=== PATIENT | female | born 1955 | race American Indian/Alaskan Native ===

== ENCOUNTER 2017-02-22 09:46 | Day surgery (SDC) | payer MEDICARE ==
[2017-02-22] MEDS ORDERED: NACL 0.9% 1000 ML 1,000 ML IV SCH (11:00)
--- NOTE | 2017-02-22 12:33 | Anesthesia Consultation ---
Anesthesia Consult and Med Hx Date of service: 02/22/17 - Airway Anesthetic Teeth Evaluation: Dentures ROM Head & Neck: Adequate Mental/Hyoid Distance: Adequate Mallampati Class: Class II Intubation Access Assessment: Probably Good - Pulmonary Exam CTA: Yes - Cardiac Exam Cardiac Exam: RRR - Pre-Operative Health Status ASA Pre-Surgery Classification: ASA2 Proposed Anesthetic Plan: MAC - Cardiovascular System Hx Hypertension: Yes - Central Nervous System Hx Back Pain: Yes (arthritis in back and knees) Hx Psychiatric Problems: Yes (Anxiety) - Gastrointestinal Hx Gastroesophageal Reflux Disease: Yes
--- NOTE | 2017-02-22 12:33 | Anesthesia Day of Surgery ---
Anesthesia Day of Surgery - Day of Surgery Patient Examined: Yes Patient H&P Reviewed: Yes Patient is NPO: Yes
[2017-02-22] MEDS ORDERED: DIPRIVAN 10 MG/ML IV ONE (14:18)
[2017-02-22] MEDS ORDERED: WATER FOR IRRIG STERILE IR ONE (14:22)
--- NOTE | 2017-02-22 14:41 | Post Anesthesia Evaluation ---
- Post Anesthesia Evaluation Patient Participated: Yes Airway Patent: Yes Stable Respiratory Function: Yes Nausea/Vomiting: No Temp > 96.8F: Yes Pain Manageable: Yes Adequeate Hydration: Yes Anesthesia Complications: No Block Receding Appropriately: Not Applicable Patient on Ventilator: No
--- NOTE | 2017-02-22 14:47 | Operative Report ---
Operative Report Operative Report: Date of procedure: 02/22/2017 Procedure: Esophagogastroduodenoscopy with multiple mucosal biopsies Attending physician: Luis Mondragon MD Casing Puller: Luis Mondragon MD Indication: Patient is a 62-year-old female who presents history of epigastric pain had been and indigestion associated nausea vomiting and reported episodes of hematemesis. An upper endoscopy is done to evaluate patient so that treatment may be directed based on the findings. Consent: Informed consent was obtained after advising the patient and family regarding nature of this procedure, its indications, potential benefits as well as possible complications including but not limited to bleeding perforation and adverse reaction to medication, infection as well as other cardiopulmonary complications. An informed written and verbal consent was then obtained after due opportunity was provided for questions and answers. Monitoring: Patient was monitored continuously with pulse oximetry and electrocardiographic recordings as well as blood pressure recordings. Vital signs remained stable throughout this procedure with no untoward events. Preoperative assessment: Patient was assessed immediately prior to this procedure for capacity to tolerate monitored anesthesia care and moderate sedation as well as general anesthesia. Patient's ASA classification is 2, Mallampati class is 2, Hyomental distance is 3. Instrument: [employer] video endoscope Medications: Propofol, given intravenously in divided doses. For details please refer to anesthesia records. Description of procedure: Patient was placed in the left lateral decubitus position after achieving sedation, the endoscope was introduced into the esophagus under direct vision. It was then advanced beyond the esophagus into the stomach and then beyond the stomach into the duodenum and to the second portion of the duodenum. It was subsequently withdrawn with careful inspection of all mucosal surfaces with the following findings. Findings: Patient had mild erosive esophagitis involving the distal esophagus. There was a sliding 2-3 cm hiatal hernia seen on entry into the stomach. There was erythema in the gastric antrum. Biopsies were obtained from the antrum to rule out gastritis. The duodenum was normal to second portion. Impression: Mild erosive esophagitis. Sliding hiatal hernia. Gastric antral erythema. Plan: Follow pathology report and continue treatment proton pump inhibitors. Additional steps were taken in follow-up.
--- NOTE | 2017-02-22 14:48 | Discharge Summary ---
Short Stay Discharge Plan Activity: advance as tolerated Weight Bearing Status: Weight Bear as Tolerated Diet: regular Follow up with: JOSE MARTIN CARVALHO MD [Primary Care Provider] - 7 Days
[2017-02-22 18:00] VITALS: BP 195/89
== END 2017-02-22 09:47 | disposition home or self-care (01) ==
LOC: GIO 09:46
PROVIDERS: ATTEND Internal Medicine Gastroenterology
DX: K29.50 Unspecified chronic gastritis without bleeding (principal); K21.0 Gastro-esophageal reflux disease with esophagitis; K44.9 Diaphragmatic hernia without obstruction or gangrene; I10 Essential (primary) hypertension; M13.89 Other specified arthritis, multiple sites; F41.9 Anxiety disorder, unspecified; Z88.0 Allergy status to penicillin; Z90.710 Acquired absence of both cervix and uterus; Z90.11 Acquired absence of right breast and nipple; Z98.890 Other specified postprocedural states; Z79.899 Other long term (current) drug therapy; Z82.49 Family history of ischemic heart disease and other diseases of the circulatory system; Z83.79 Family history of other diseases of the digestive system
CPT/HCPCS: 43239; 88305; 88342; J2704; J7030

== ENCOUNTER 2017-03-08 08:35 | Day surgery (SDC) | payer MEDICARE ==
[2017-03-08] MEDS ORDERED: NACL 0.9% 1000 ML 1,000 ML ONE (08:50)
--- NOTE | 2017-03-08 09:23 | Anesthesia Consultation ---
Anesthesia Consult and Med Hx Date of service: 03/08/17 - Airway Anesthetic Teeth Evaluation: Good, Dentures (upper and lower) ROM Head & Neck: Adequate Mental/Hyoid Distance: Adequate Mallampati Class: Class II Intubation Access Assessment: Probably Good - Pulmonary Exam CTA: Yes - Cardiac Exam Cardiac Exam: RRR - Pre-Operative Health Status ASA Pre-Surgery Classification: ASA2 Proposed Anesthetic Plan: MAC - Cardiovascular System Hx Hypertension: Yes (not on meds, off for 2 years) - Central Nervous System Hx Back Pain: Yes Hx Psychiatric Problems: Yes (Anxiety) - Gastrointestinal Hx Gastroesophageal Reflux Disease: Yes - Endocrine Hx Liver Disease: (ABNORMAL LIVER FUNCTION STUDIES) - Other Systems Hx Alcohol Use: No Hx Substance Use: No
--- NOTE | 2017-03-08 09:24 | Anesthesia Day of Surgery ---
Anesthesia Day of Surgery - Day of Surgery Patient Examined: Yes Patient H&P Reviewed: Yes Patient is NPO: Yes
[2017-03-08] MEDS ORDERED: WATER FOR IRRIG STERILE IR ONE (09:55)
[2017-03-08] MEDS ORDERED: NACL 0.9% 1000 ML 1,000 ML IV SCH (11:00)
[2017-03-08] MEDS ORDERED: DIPRIVAN 10 MG/ML IV ONE ×6 (11:01→12:17)
[2017-03-08] MEDS ORDERED: ZOFRAN ONE (12:44)
--- NOTE | 2017-03-08 12:53 | Post Anesthesia Evaluation ---
- Post Anesthesia Evaluation Patient Participated: Yes Airway Patent: Yes Stable Respiratory Function: Yes Temp > 96.8F: Yes Pain Manageable: Yes Adequeate Hydration: Yes Anesthesia Complications: No Block Receding Appropriately: Not Applicable
--- NOTE | 2017-03-08 12:56 | Operative Report ---
Operative Report Operative Report: Date of procedure: 03/09/2017 Procedure: Colonoscopy with snare polypectomy of cecal polyp and descending colon polyp, submucosal injection with normal saline of cecal polyp, ablation of multiple ascending colon polyps. Attending physician: Luis Mondragon MD Metal Trades Instructor: Luis Mondragon MD Indication: Patient is a 62-year-old female who presented with history of recurrent blood in stool and progressive constipation with bloating and intestinal gas. This procedure is done to evaluate patient, so that treatment may be directed based on the findings. Consent: Informed consent was obtained after advising the patient and family regarding nature of this procedure, its indications, potential benefits as well as possible complications including but not limited to bleeding perforation and adverse reaction to medication, infection as well as other cardiopulmonary complications. An informed written and verbal consent was then obtained after due opportunity was provided for questions and answers. Monitoring: Patient was monitored continuously with pulse oximetry and electrocardiographic recordings as well as blood pressure recordings. Vital signs remained stable throughout this procedure with no untoward events. Preoperative assessment: Patient was assessed immediately prior to this procedure for capacity to tolerate monitored anesthesia care and moderate sedation as well as general anesthesia. Patient's ASA classification is 2, Mallampati class is 2, Hyomental distance is 3. Instrument: [employer] Video colonoscope Medications: Propofol given intravenously in divided doses for details please refer to anesthesia records. Description of procedure: Patient was placed in the left lateral decubitus position after achieving sedation, a digital rectal examination was performed following which the colonoscope was introduced into the anal verge and advanced to the cecum which was identified by the cecal valve, the appendiceal orifice, as well as by the cecal strap and direct transillumination. The colonoscope was subsequently withdrawn with careful inspection of all mucosal surfaces. Patient tolerated this procedure well and was subsequently taken to the recovery room. The following findings were noted. Findings: The procedure was technically difficult. The colon was moderately tortuous. There was some thick liquid stool seen in sections of the colon however the preparation was felt to be adequate given that these areas were fairly well easily irrigated. In the cecum, patient had a broad-based polyp just behind the ileocecal valve. This was very difficult to visualize. It measured approximately 2 cm. It was sessile. The base of the polyp was injected with saline to elevate it. It was then removed by snare electrocautery. Following this, the base of the polyp was ablated using a 7 Telugu probe. The cecal polypectomy was technically difficult. In the ascending colon, there were 2 polyps. These were flat measured approximately 5 mm each . These were ablated ablated using the gold probe. The transverse colon was normal. In the descending colon, patient had a semi-pedunculated 1.5 cm polyp. This was removed by snare electrocautery and retrieved. The sigmoid colon was normal. The rectum was normal. On the retroflexed view at the anal verge, patient had large prominent internal hemorrhoids which appeared friable. Impression: Large cecal polyp status post submucosal injection and snare polypectomy. Ascending colon polyps status post ablation. Descending colon polyp status post snare polypectomy. Prominent large internal hemorrhoids. Technically difficult and prolonged procedure. Plan: Follow pathology report. High-fiber diet. Consider repeat colonoscopy in 3-6 months. If the cecal polyp shows invasive cancer, patient will require a limited resection of the cecum. If however the polyp tissue is only adenomatous without significant dysplasia, then a repeat colonoscopy should be done over the next 3-6 was as previously noted. Patient would likely benefit from hemorrhoidal band ligation in the near future.
--- NOTE | 2017-03-08 12:56 | Discharge Summary ---
Short Stay Discharge Plan Activity: advance as tolerated Weight Bearing Status: Weight Bear as Tolerated Diet: regular Follow up with: JOSE MARTIN CARVALHO MD [Primary Care Provider] - 7 Days
[2017-03-08] MEDS ORDERED: APRESOLINE ONE (13:02)
[2017-03-08 13:41] VITALS: BP 161/74
== END 2017-03-08 08:36 | disposition home or self-care (01) ==
LOC: GIO 08:35
PROVIDERS: ATTEND Internal Medicine Gastroenterology
DX: D12.0 Benign neoplasm of cecum (principal); D12.4 Benign neoplasm of descending colon; K63.89 Other specified diseases of intestine; K64.8 Other hemorrhoids; I10 Essential (primary) hypertension; F41.9 Anxiety disorder, unspecified; K21.9 Gastro-esophageal reflux disease without esophagitis; Z88.0 Allergy status to penicillin; Z91.018 Allergy to other foods; Z90.710 Acquired absence of both cervix and uterus; Z90.11 Acquired absence of right breast and nipple; Z79.899 Other long term (current) drug therapy; Z98.890 Other specified postprocedural states; Z82.49 Family history of ischemic heart disease and other diseases of the circulatory system; Z83.79 Family history of other diseases of the digestive system
CPT/HCPCS: 45381; 45385; 45388; 88304; 88305; J0360; J2405; J2704; J7030